=== PATIENT | female | born 1980 | race Caucasian/White ===

== ENCOUNTER 2017-09-21 16:09 | Inpatient (IN) | payer OTHER ==
[2017-09-21 16:56] VITALS: BMI 25.2
--- NOTE | 2017-09-21 20:23 | HP ---
COWS - Scale Resting Pulse: 1= MT 81-100 Sweatin=Flushed/Facial Moisture Restless Observation: 1= Difficult to Sit Still Pupil Size: 0= Normal to Room Light Bone or Joint Aches: 4=Acute Joint/Muscle Pain Runny Nose/ Eye Tearin= None GI Upset > 30mins: 3= Vomiting/Diarrhea (vomiting x 2) Tremor Observation: 4= Gross Tremor/Twitching Yawning Observation: 0= None Anxiety or Irritability: 4=Extreme Anxiety Goose Flesh Skin: 0=Smooth Skin COWS Score: 19 CIWA Score - CIWA Score Nausea/Vomitin (vomiting x 2) Muscle Tremors: 4-Moderate,w/Arms Extend Anxiety: 4-Mod. Anxious/Guarded Agitation: 1-Slight > Activity Paroxysmal Sweats: 2 Orientation: 0-Oriented Tacttile Disturbances: 0-None Auditory Disturbances: 0-None Visual Disturbances: 0-None Headache: 4-Moderately Severe CIWA-Ar Total Score: 18 Admission ROS BHS - HPI Chief Complaint: Alcohol withdrawal symptoms Allergies/Adverse Reactions: Allergies Allergy/AdvReac Type Severity Reaction Status Date / Time No Known Allergies Allergy Verified 09/21/17 18:33 History of Present Illness: 37 years old female with a long history of alcohol and cocaine dependence is seeking admission to detox. Patient has been in previous detox and reports 3 months of sobriety. Patient has past medical history of anemia and depression. Denies suicidal ideation at this time. She is a current smoker and smoking cessation initiated.. Exam Limitations: No Limitations - Ebola screening Have you traveled outside of the country in the last 21 days: No Have you had contact with anyone from an Ebola affected area: No Have you been sick,other than usual withdrawal symptoms: No Do you have a fever: No - Review of Systems Constitutional: Chills, Loss of Appetite, Night Sweats, Changes in sleep, Weakness EENT: reports: No Symptoms Reported Respiratory: reports: Productive cough (greenish phlegm) Cardiac: reports: No Symptoms Reported GI: reports: Poor Appetite, Poor Fluid Intake, Vomiting, Abdominal cramping : reports: No Symptoms Reported Musculoskeletal: reports: Back Pain, Joint Pain, Muscle Pain, Muscle Weakness Integumentary: reports: Flushing, Other (right ankle tatoo) Neuro: reports: Headache, Tingling, Tremors Endocrine: reports: No Symptoms Reported Hematology: reports: No Symptoms Reported Psychiatric: reports: Orientated x3, Agitated, Anxious Other Systems: Reviewed and Negative Patient History - Patient Medical History Hx Anemia: Yes Hx Asthma: No Hx Chronic Obstructive Pulmonary Disease (COPD): No Hx Cancer: No Hx Cardiac Disorders: No Hx Congestive Heart Failure: No Hx Hypertension: No Hx Hypercholesterolemia: No Hx Pacemaker: No HX Cerebrovascular Accident: No Hx Seizures: No Hx Dementia: No Hx Diabetes: No Hx Gastrointestinal Disorders: No Hx Liver Disease: No Hx Genitourinary Disorders: No Hx Sexually Transmitted Disorders: No Hx Renal Disease (ESRD): No Hx Thyroid Disease: No Hx Human Immunodeficiency Virus (HIV): No Hx Hepatitis C: No Hx Depression: Yes Hx Suicide Attempt: No (Denies suicidal ideation at this time) Hx Bipolar Disorder: No Hx Schizophrenia: No - Patient Surgical History Past Surgical History: No Hx Neurologic Surgery: No Hx Cataract Extraction: No Hx Cardiac Surgery: No Hx Lung Surgery: No Hx Breast Surgery: No Hx Breast Biopsy: No Hx Abdominal Surgery: No Hx Appendectomy: No Hx Cholecystectomy: No Hx Genitourinary Surgery: No Hx Section: No Hx Orthopedic Surgery: No Hx Hysterectomy: No Anesthesia Reaction: No - PPD History Previous Implant?: Yes Documented Results: Negative w/proof Date: 03/27/14 PPD to be Administered?: Yes - Reproductive History Patient is a Female of Child Bearing Age (11 -55 yrs old): Yes Last Menstrual Period: 09/05/17 Patient : No - Smoking Cessation Smoking history: Current every day smoker Have you smoked in the past 12 months: Yes Aproximately how many cigarettes per day: 20 Cigars Per Day: 0 Hx Chewing Tobacco Use: No Initiated information on smoking cessation: Yes 'Breaking Loose' booklet given: 09/21/17 - Substance & Tx. History Hx Alcohol Use: Yes (BEER, LIQUOR (VODKA AND RUM)) Hx Substance Use: Yes Substance Use Type: Cocaine Hx Substance Use Treatment: Yes - Substances Abused Alcohol Route: Oral Frequency: Daily Amount used: LIQUOR- 1 LITRE, BEER- 4, 24oz Age of first use: 17 Date of Last Use: 09/21/17 PCP Route: Smoking Frequency: Daily Amount used: 3 bags Age of first use: 36 Date of Last Use: 09/20/17 Cocaine Route: Inhalation Frequency: 1-2 times per week Amount used: 2 bags Age of first use: 35 Date of Last Use: 09/20/17 Family Disease History - Family Disease History Family Disease History: CA: Grandparent (CERVICAL CA, GRANDMOTHER-), Other: Father (ETOH DEPENDENT) Admission Physical Exam [facility] - Vital Signs Vital Signs: Vital Signs - 24 hr 09/21/17 16:54 Temperature 98.2 F Pulse Rate 98 H Respiratory 18 Rate Blood Pressure 117/80 - Physical General Appearance: Yes: Moderate Distress, Tremorous, Irritable, Sweating, Anxious HEENTM: Yes: EOMI, Normal Voice, AG Respiratory: Yes: Lungs Clear, Normal Breath Sounds, No Respiratory Distress Neck: Yes: Supple, Trachea in good position Breast: Yes: Breast Exam Deferred Cardiology: Yes: Regular Rhythm, Regular Rate, S1, S2 Abdominal: Yes: Normal Bowel Sounds, Soft Genitourinary: Yes: Within Normal Limits Back: Yes: Within Normal Limits Musculoskeletal: Yes: Muscle Pain, Muscle weakness Extremities: Yes: Tremors Neurological: Yes: Within Normal Limits, Alert, Normal Mood/Affect Integumentary: Yes: Warm, Other (RIGHT ANKLE TATOO) Lymphatic: Yes: Within Normal Limits - Diagnostic (1) Alcohol dependence with uncomplicated withdrawal Current Visit: Yes Status: Chronic (2) Cocaine dependence, uncomplicated Current Visit: Yes Status: Chronic (3) PCP (phencyclidine) abuse Current Visit: Yes Status: Chronic (4) Depression Current Visit: Yes Status: Chronic (5) Nicotine dependence Current Visit: Yes Status: Chronic Qualifiers: Nicotine product type: cigarettes Cleared for Admission [facility] - Detox or Rehab [facility] Level of Care: Medically Managed Detox Regimen/Protocol: Librium [facility] Breath Alcohol Content Breath Alcohol Content: 0 Urine Pregancy Test - Result Urine Test Results: Negative- NO Line Present Urine Drug Screen - Results Drug Screen Negative: No Urine Drug Screen Results: CICI-Cocaine, PCP-Phencyclidine
[2017-09-21] MEDS ORDERED: NICOTINE POLACRILEX 2 MG GUM BC PRN (20:39)
[2017-09-21] MEDS ORDERED: MAGNESIUM CITRATE 300 ML BOTTLE PO PRN (20:39)
[2017-09-21] MEDS ORDERED: ACETAMINOPHEN 325 MG TABLET (FP) PO PRN (20:39)
[2017-09-21] MEDS ORDERED: chlordiazePOXIDE HCL 25 MG CAPSULE PO PRN (20:39)
[2017-09-21] MEDS ORDERED: IBUPROFEN 400 MG TABLET (FP) PO PRN (20:39)
[2017-09-21] MEDS ORDERED: guaiFENesin/D-METHORPHAN HB 10 ML UNIT-DOSE CUPS PO PRN (20:39)
[2017-09-21] MEDS ORDERED: MAGNESIUM HYDROX 2400MG/30ML ORAL SUSPENSION 30 ML CUP PO PRN (20:39)
[2017-09-21] MEDS ORDERED: P-EPHED 60MG/TRIPROLIDI 2.5MG TABLET PO PRN (20:39)
[2017-09-21] MEDS ORDERED: MAG HYDROX/AL HYDROX/SIMETH 30 ML UNIT-DOSE CUP PO PRN (20:39)
[2017-09-21] MEDS ORDERED: MENTHOL/PHENOL 1 EACH UD MM PRN (20:39)
[2017-09-21] MEDS ORDERED: LOPERAMIDE HCL 2 MG CAPSULE PO PRN (20:39)
--- NOTE | 2017-09-21 21:34 | PN ---
BHS Progress Note Note: received nurse call that the patient needs ppd
[2017-09-21] MEDS: chlordiazePOXIDE HCL 25 MG CAPSULE PO SCH (22:18)
[2017-09-21] MEDS: THIAMINE HCL 100 MG TABLET (FP) PO SCH (22:18)
[2017-09-22] MEDS: chlordiazePOXIDE HCL 25 MG CAPSULE PO SCH ×4 (05:34→22:17)
[2017-09-22 09:40] LABS: HEMATOCRIT 41.7 % (32.4-45.2); HEMOGLOBIN 13.7 GM/dL (10.7-15.3); MCH 31.9 pg (25.7-33.7); MCHC 32.8 g/dl (32.0-36.0); MEAN PLT VOLUME 8.8 fl (7.5-11.1); PLATELET COUNT 199 K/MM3 (134-434); RBC 4.29 M/mm3 (3.60-5.2); RDW 13.7 % (11.6-15.6); WHITE BLOOD COUNT 5.8 K/mm3 (4.0-10.0)
--- NOTE | 2017-09-22 09:46 | EKG ---
Test Reason : Blood Pressure : / mmHG Vent. Rate : 064 BPM Atrial Rate : 064 BPM P-R Int : 142 ms QRS Dur : 092 ms QT Int : 394 ms P-R-T Axes : 042 073 066 degrees QTc Int : 406 ms NORMAL SINUS RHYTHM NORMAL ECG NO PREVIOUS ECGS AVAILABLE Confirmed by MD Jacki, Dionicio ([id number]) on 09/22/2017 9:46:15 AM Referred By: Nixon BARRAGAN Confirmed By:Dionicio Echeverria MD
[2017-09-22 09:52] LABS: URINE APPEARANCE CLEAR; URINE BILIRUBIN NEGATIVE (NEGATIVE); URINE BLOOD NEGATIVE (NEGATIVE); URINE COLOR YELLOW; URINE GLUCOSE (UA) NEGATIVE (NEGATIVE); URINE KETONE TRACE (NEGATIVE); URINE LEUK ESTERASE NEGATIVE (NEGATIVE); URINE NITRITE NEGATIVE (NEGATIVE); URINE PROTEIN NEGATIVE (NEGATIVE)
[2017-09-22 09:54] LABS: CHLORIDE 106 mmol/L (98-107); POTASSIUM 3.6 mmol/L (3.5-5.1); SODIUM 139 mmol/L (136-145)
[2017-09-22 10:04] LABS: ALBUMIN 3.3 g/dl (3.4-5.0); ALK PHOS 88 U/L (45-117); ANION GAP 7 (8-16); BILIRUBIN,TOTAL 0.8 mg/dL (0.2-1.0); BLOOD UREA NITROGEN 12 mg/dL (7-18); CALCIUM 8.5 mg/dL (8.5-10.1); CO2 26 mmol/L (21-32); CREATININE 0.7 mg/dL (0.55-1.02); GLUCOSE,RANDOM 84 mg/dL (74-106); SGOT/AST 20 U/L (15-37); SGPT/ALT 21 U/L (12-78)
--- NOTE | 2017-09-22 10:10 | CONSULT ---
[facility] Psychiatric Consult - Data Date of interview: 09/22/17 Admission source: [facility] Identifying data: This is 37 years old female with no psychiatric hospitalization history intoxicated with: Cocaine, Alcohol and PCP, Nixotine Substance Abuse History: - Smoking Cessation. Smoking history: Current every day smoker. Have you smoked in the past 12 months: Yes. Aproximately how many cigarettes per day: 20. Cigars Per Day: 0. Hx Chewing Tobacco Use: No. Initiated information on smoking cessation: Yes. 'Breaking Loose' booklet given : 09/21/17. - Substance & Tx. History. Hx Alcohol Use: Yes (BEER, LIQUOR ( VODKA AND RUM)). Hx Substance Use: Yes. Substance Use Type: Cocaine. Hx Substance Use Treatment: Yes. - Substances Abused. Alcohol. Route: Oral. Frequency: Daily. Amount used: LIQUOR- 1 LITRE, BEER- 4, 24oz. Age of first use: 17. Date of Last Use: 09/21/17. PCP. Route: Smoking. Frequency: Daily. Amount used: 3 bags. Age of first use: 36. Date of Last Use: . Cocaine. Route: Inhalation. Frequency: 1-2 times per week. Amount used: 2 bags. Age of first use: 35. Date of Last Use: 09/20/17 Medical History: Denies Psychiatric History: Reports depression and anxiety Physical/Sexual Abuse/Trauma History: Denies Additional Comment: Observation. Detox Unit Care Protocol Mental Status Exam - Mental Status Exam Alert and Oriented to: Person Cognitive Function: Fair Patient Appearance: Unkempt Mood: Anxious Affect: Mood Congruent Patient Behavior: Cooperative Speech Pattern: Appropriate Voice Loudness: Mildly Loud Thought Process: Goal Oriented Thought Disorder: Being Controlled Hallucinations: Denies Suicidal Ideation: Denies Homicidal Ideation: Denies Insight/Judgement: Fair Sleep: Difficulty falling asleep Appetite: Fair Muscle strength/Tone: Mild Hypotonicity Gait/Station: Shuffling Additional Comments: Observation. Detox Unit Care Protocol Psychiatric Findings - Problem List ([place] 1, 2,3) (1) Alcohol dependence with uncomplicated withdrawal Current Visit: Yes Status: Chronic (2) Cocaine dependence, uncomplicated Current Visit: Yes Status: Chronic (3) Depression Current Visit: Yes Status: Chronic (4) Nicotine dependence Current Visit: Yes Status: Chronic Qualifiers: Nicotine product type: cigarettes (5) PCP (phencyclidine) abuse Current Visit: Yes Status: Chronic (6) Alcohol dependence, episodic drinking behavior Current Visit: No Status: Acute (7) Alcohol intoxication Current Visit: No Status: Acute (8) Alcohol-induced mood disorder Current Visit: No Status: Acute (9) Cocaine abuse Current Visit: No Status: Acute (10) Marijuana abuse Current Visit: No Status: Acute (11) Alcohol dependence Current Visit: No Status: Chronic - Initial Treatment Plan Initial Treatment Plan: Observation. Detox Unit Care Protocol
[2017-09-22] MEDS: PRENATAL VITAMINS W/ FOLIC ACID TABLET (FP) PO SCH (10:52)
[2017-09-22] MEDS: FLUoxetine HCL 20 MG CAPSULE (FP) PO SCH (10:52)
[2017-09-22] MEDS: risperiDONE 1 MG TABLET (FP) PO SCH ×2 (10:52→22:17)
[2017-09-22] MEDS: NICOTINE 14 MG/24 HOURS TOPICAL PATCH TD SCH (10:53)
--- NOTE | 2017-09-22 11:32 | PN ---
S CIWA - CIWA Score Nausea/Vomitin-No Nausea/No Vomiting Muscle Tremors: 4-Moderate,w/Arms Extend Anxiety: 3 Agitation: 3 Paroxysmal Sweats: 3 Orientation: 0-Oriented Tacttile Disturbances: 0-None Auditory Disturbances: 0-None Visual Disturbances: 0-None Headache: 1-Very Mild CIWA-Ar Total Score: 14 S Progress Note (SOAP) Subjective: agitation sweats shakes interrupted sleep body aches irritable Objective: 09/22/17 11:31 Vital Signs Temperature 97.7 F 09/22/17 10:47 Pulse Rate 83 09/22/17 10:47 Respiratory Rate 16 09/22/17 10:47 Blood Pressure 100/57 09/22/17 10:47 O2 Sat by Pulse Oximetry (%) Laboratory Tests 09/22/17 09/22/17 09/22/17 07:30 07:30 07:30 WBC 5.8 RBC 4.29 Hgb 13.7 Hct 41.7 MCV 97.0 H MCH 31.9 MCHC 32.8 RDW 13.7 Plt Count 199 MPV 8.8 Sodium 139 Potassium 3.6 Chloride 106 Carbon Dioxide 26 Anion Gap 7 L BUN 12 D Creatinine 0.7 Creat Clearance w eGFR > 60 Random Glucose 84 Calcium 8.5 Total Bilirubin 0.8 D AST 20 ALT 21 D Alkaline Phosphatase 88 Total Protein 6.0 L Albumin 3.3 L Urine Color Urine Appearance Urine pH Ur Specific Dalton Urine Protein Urine Glucose (UA) Urine Ketones Urine Blood Urine Nitrite Urine Bilirubin Urine Urobilinogen RPR Titer Nonreactive 09/22/17 07:30 WBC RBC Hgb Hct MCV MCH MCHC RDW Plt Count MPV Sodium Potassium Chloride Carbon Dioxide Anion Gap BUN Creatinine Creat Clearance w eGFR Random Glucose Calcium Total Bilirubin AST ALT Alkaline Phosphatase Total Protein Albumin Urine Color Yellow Urine Appearance Clear Urine pH 5.0 Ur Specific Dalton 1.023 Urine Protein Negative Urine Glucose (UA) Negative Urine Ketones Trace H Urine Blood Negative Urine Nitrite Negative Urine Bilirubin Negative Urine Urobilinogen 2.0 H RPR Titer aaox3 ambulating no acute distress Assessment: 09/22/17 11:32 withdrawal sx Plan: continue detox increase fluids
[2017-09-22] MEDS: QUEtiapine FUMARATE 100 MG TABLET (FP) PO SCH (22:17)
[2017-09-22] MEDS: traZODone HCL 100 MG TABLET (FP) PO SCH (22:17)
[2017-09-22] MEDS: THIAMINE HCL 100 MG TABLET (FP) PO SCH (22:18)
[2017-09-23] MEDS: chlordiazePOXIDE HCL 25 MG CAPSULE PO SCH ×3 (06:18→17:25)
[2017-09-23] MEDS: FLUoxetine HCL 20 MG CAPSULE (FP) PO SCH (10:11)
[2017-09-23] MEDS: risperiDONE 1 MG TABLET (FP) PO SCH ×2 (10:11→22:32)
[2017-09-23] MEDS: PRENATAL VITAMINS W/ FOLIC ACID TABLET (FP) PO SCH (10:11)
[2017-09-23] MEDS: NICOTINE 14 MG/24 HOURS TOPICAL PATCH TD SCH (10:15)
--- NOTE | 2017-09-23 10:51 | PN ---
BHS CIWA - CIWA Score Nausea/Vomitin-No Nausea/No Vomiting Muscle Tremors: 3 Anxiety: 2 Agitation: 2 Paroxysmal Sweats: 2 Orientation: 0-Oriented Tacttile Disturbances: 0-None Auditory Disturbances: 0-None Visual Disturbances: 0-None Headache: 0-None Present CIWA-Ar Total Score: 9 BHS Progress Note (SOAP) Subjective: little sweats feeling better Objective: 09/23/17 10:52 Vital Signs Temperature 96.8 F L 09/23/17 10:00 Pulse Rate 78 09/23/17 10:00 Respiratory Rate 18 09/23/17 10:00 Blood Pressure 118/73 09/23/17 10:00 O2 Sat by Pulse Oximetry (%) aaox3 ambulating no acute distress Assessment: 09/23/17 10:52 mild withdrawal sx Plan: continue detox pt d/c in am pt will be p/u to st visit rehab
[2017-09-23] MEDS: QUEtiapine FUMARATE 100 MG TABLET (FP) PO SCH (22:31)
[2017-09-23] MEDS: chlordiazePOXIDE 5 MG CAPSULE PO SCH (22:31)
[2017-09-23] MEDS: THIAMINE HCL 100 MG TABLET (FP) PO SCH (22:31)
[2017-09-23] MEDS: traZODone HCL 100 MG TABLET (FP) PO SCH (22:32)
[2017-09-24] MEDS: chlordiazePOXIDE 5 MG CAPSULE PO SCH ×2 (05:47→10:17)
--- NOTE | 2017-09-24 08:57 | DS ---
[facility] Detox Discharge Summary Admission Date: 09/21/17 Discharge Date: 09/24/17 - History Present History: Alcohol Dependence, Cannabis Dependence, Cocaine Dependence, Pcp Dependence - Physical Exam Results Vital Signs: Vital Signs Temperature 97.7 F 09/24/17 06:00 Pulse Rate 66 09/24/17 06:00 Respiratory Rate 18 09/24/17 06:00 Blood Pressure 115/66 09/24/17 06:00 O2 Sat by Pulse Oximetry (%) - Treatment Hospital Course: Detox Protocol Followed, Detoxed Safely, Responded well, Discharged Condition Good, Rehab Referral Accepted - Medication Discharge Medications: Ambulatory Orders Fluoxetine HCl [Prozac -] 20 mg PO DAILY #30 capsule 09/22/17 Quetiapine Fumarate [Seroquel -] 200 mg PO BID #60 tab 09/22/17 Quetiapine Fumarate [Seroquel] 100 mg PO HS #30 tablet 09/22/17 Risperidone [Risperdal -] 1 mg PO BID #60 tablet 09/22/17 Trazodone HCl [Desyrel -] 100 mg PO HS #30 tablet 09/22/17 - Diagnosis (1) Alcohol dependence with uncomplicated withdrawal Current Visit: Yes Status: Chronic (2) Cocaine dependence, uncomplicated Current Visit: Yes Status: Chronic (3) Depression Current Visit: Yes Status: Chronic (4) Nicotine dependence Current Visit: Yes Status: Chronic Qualifiers: Nicotine product type: cigarettes Substance use status: uncomplicated Qualified Code(s): F17.210 - Nicotine dependence, cigarettes, uncomplicated (5) PCP (phencyclidine) abuse Current Visit: Yes Status: Chronic (6) Adjustment disorder with depressed mood Current Visit: No Status: Acute (7) Alcohol dependence, episodic drinking behavior Current Visit: No Status: Acute (8) Alcohol intoxication Current Visit: No Status: Acute (9) Alcohol-induced mood disorder Current Visit: No Status: Acute (10) Marijuana abuse Current Visit: No Status: Acute - AMA Did Patient Leave Against Medical Advice: No ([facility] )
[2017-09-24] MEDS: NICOTINE 14 MG/24 HOURS TOPICAL PATCH TD SCH (09:13)
[2017-09-24] MEDS: risperiDONE 1 MG TABLET (FP) PO SCH (09:13)
[2017-09-24] MEDS: FLUoxetine HCL 20 MG CAPSULE (FP) PO SCH (09:13)
[2017-09-24] MEDS: PRENATAL VITAMINS W/ FOLIC ACID TABLET (FP) PO SCH (09:13)
[2017-09-24 09:43] VITALS: BP 117/78; PULSE 83; TEMP 96
[2017-09-24] MEDS ORDERED: chlordiazePOXIDE HCL 10 MG CAPSULE PO SCH (23:00)
== END 2017-09-24 10:00 | disposition home or self-care (01) | DRG 774 ==
LOC: YASAS 16:09 → Y6N 19:48
PROVIDERS: ADMIT Internal Medicine; ATTEND Internal Medicine
PROC: HZ2ZZZZ Detoxification Services for Substance Abuse Treatment (ICD-10-PCS; principal; 2017-09-21)
DX: F10.230 Alcohol dependence with withdrawal, uncomplicated (principal); F14.20 Cocaine dependence, uncomplicated; F17.210 Nicotine dependence, cigarettes, uncomplicated; F16.10 Hallucinogen abuse, uncomplicated; F10.24 Alcohol dependence with alcohol-induced mood disorder; F32.9 Major depressive disorder, single episode, unspecified; F43.21 Adjustment disorder with depressed mood
CPT/HCPCS: 36415; 80053; 81003; 85027; 86593; 93005; 93010; J2794

== ENCOUNTER 2019-04-12 08:42 | Inpatient (IN) | payer OTHER | END 2019-04-17 12:14 | disposition other institution (70) | LOC: YASAS 08:42 → Y6N 10:52 ==

== ENCOUNTER 2019-04-17 12:24 | Inpatient (IN) | payer OTHER ==
[2019-04-17] MEDS ORDERED: P-EPHED 60MG/TRIPROLIDI 2.5MG TABLET PO PRN (14:47)
[2019-04-17] MEDS ORDERED: MENTHOL/PHENOL 1 EACH UD MM PRN (14:47)
[2019-04-17] MEDS ORDERED: LOPERAMIDE HCL 2 MG CAPSULE PO PRN (14:47)
[2019-04-17] MEDS ORDERED: MAGNESIUM CITRATE 300 ML BOTTLE PO PRN (14:47)
[2019-04-17] MEDS ORDERED: NICOTINE POLACRILEX 4 MG GUM BUC PRN (14:47)
[2019-04-17] MEDS ORDERED: guaiFENesin 200 MG/10 ML 10 ML UNIT-DOSE CUPS PO PRN (14:47)
[2019-04-17] MEDS ORDERED: IBUPROFEN 400 MG TABLET (FP) PO PRN (14:47)
[2019-04-17] MEDS ORDERED: MAG HYDROX/AL HYDROX/SIMETH 30 ML UNIT-DOSE CUP PO PRN (14:47)
[2019-04-17] MEDS ORDERED: MAGNESIUM HYDROX 2400MG/30ML ORAL SUSPENSION 30 ML CUP PO PRN (14:47)
--- NOTE | 2019-04-17 14:47 | HP ---
[facility] Rehab Assess/Revision - Admission History Admitted to Rehab from: [address] - Vital signs Vital Signs: Vital Signs Period Temp Pulse Resp BP Sys/Bishop Pulse Ox Last 24 Hr 97 F 67 16 105/68 - Findings Detox History & Physical reviewed: Yes Concur with findings: Yes Inpatient Rehab Admission - Rehab Decision to Admit Inpatient rehab admission?: Yes - Initial Determination Are CD services needed?: Yes Free of communicable disease: Yes Not in need of hospitalization: Yes - Rehab Admission Criteria Previous failed treatment: Yes Poor recovery environment: Yes Comorbidities: Yes Lacks judgement: Yes Patient is meeting Inpatient Rehab admission criteria:: Yes
[2019-04-17] MEDS: MELATONIN 5 MG TABLETS PO PRN (21:23)
[2019-04-17] MEDS: hydrOXYzine PAMOATE 50 MG CAPSULE (FP) PO PRN (21:23)
[2019-04-17] MEDS: THIAMINE HCL 100 MG TABLET (FP) PO SCH (21:23)
[2019-04-18] MEDS: SERTRALINE HCL 50 MG TABLET (FP) PO SCH (10:26)
[2019-04-18] MEDS: NICOTINE 21 MG/24 HOURS TOPICAL PATCH TD SCH (10:26)
[2019-04-18] MEDS: PRENATAL VITAMINS W/ FOLIC ACID TABLET (FP) PO SCH (10:26)
[2019-04-18] MEDS: MELATONIN 5 MG TABLETS PO PRN (21:21)
[2019-04-18] MEDS: THIAMINE HCL 100 MG TABLET (FP) PO SCH (21:21)
[2019-04-18] MEDS: hydrOXYzine PAMOATE 50 MG CAPSULE (FP) PO PRN (21:21)
[2019-04-19] MEDS: NICOTINE 21 MG/24 HOURS TOPICAL PATCH TD SCH (09:46)
[2019-04-19] MEDS: SERTRALINE HCL 50 MG TABLET (FP) PO SCH (09:47)
[2019-04-19] MEDS: PRENATAL VITAMINS W/ FOLIC ACID TABLET (FP) PO SCH (09:47)
--- NOTE | 2019-04-19 16:00 | CONSULT ---
[facility] Psychiatric Consult - Data Date of interview: 04/19/19 Admission source: [facility] Identifying data: Patient is a 38 year old single female, mother of three, unemployed, domiciled, and is supported by food [employer]. This is patient's first admission to rehab at [facility]. Patient admitted to for alcohol dependence. Substance Abuse History: Smoking Cessation. Smoking history: Current every day smoker. Have you smoked in the past 12 months: Yes. Aproximately how many cigarettes per day: 10. Cigars Per Day: 0. Hx Chewing Tobacco Use: No. Initiated information on smoking cessation: Yes. 'Breaking Loose' booklet given : 04/12/19. - Substance & Tx. History. Hx Alcohol Use: Yes. Substance Use Type: Alcohol. - Substances abused. Alcohol. Substance route: Oral. Frequency: Daily. Amount used: 2 pints vodka. Age of first use: 16. Date of last use: 04/12/19. PCP. Substance route: Smoking. Frequency: 3-6 times per week. Amount used: 2 Dime ($10) bags. Age of first use: 36. Date of last use: 04/12/19 Medical History: Significant for history of anemia. Psychiatric History: Patient denies h/o psychiatric hospitalization and suicide attempt. Reports first seeing a psychiatrist [facility] at [facility]. States she was prescribed seroquel 200mg TID + Risperdal + trazodone (unsure of doses). She denies h/o psychosis and manic episodes. After discharge from [facility] she seeked outpatient psychiatric care at [facility] and was started on zoloft 50mg and titrated to 150mg daily. Patient reports history of depression secondary to unemployment, lack of custody of her children, and alcohol dependence. Patient was given a prescription of zoloft 150mg on 02/19/19. She reports medication noncompliance ( 1X month) due to her alcohol dependence. At present patient reports feeling sad but is motivated to continue rehab. Physical/Sexual Abuse/Trauma History: denies. Mental Status Exam - Mental Status Exam Alert and Oriented to: Time, Place, Person Cognitive Function: Good Patient Appearance: Well Groomed Mood: Sad Affect: Appropriate Patient Behavior: Cooperative Speech Pattern: Appropriate Voice Loudness: Normal Thought Process: Goal Oriented Thought Disorder: Not Present Hallucinations: Denies Suicidal Ideation: Denies Homicidal Ideation: Denies Insight/Judgement: Poor Sleep: Fair Appetite: Fair Muscle strength/Tone: Normal Gait/Station: Normal Psychiatric Findings - Problem List ([place] 1, 2,3) (1) Adjustment disorder with depressed mood Current Visit: Yes Status: Acute (2) Cocaine dependence, uncomplicated Current Visit: Yes Status: Chronic (3) PCP (phencyclidine) abuse Current Visit: Yes Status: Chronic (4) Nicotine dependence Current Visit: Yes Status: Chronic Qualifiers: Nicotine product type: cigarettes Substance use status: uncomplicated Qualified Code(s): F17.210 - Nicotine dependence, cigarettes, uncomplicated - Initial Treatment Plan Initial Treatment Plan: Psychoeducation provided. rehab in progress. Willl d/c zoloft 150mg ordered by WELFARE ADVISER. Will d/c Melatonin 5mg and order 10mg HS. Will order zoloft 100mg. Benefits and side effects discussed. Verbal consent given.
[2019-04-19] MEDS: THIAMINE HCL 100 MG TABLET (FP) PO SCH (21:20)
[2019-04-19] MEDS: hydrOXYzine PAMOATE 50 MG CAPSULE (FP) PO PRN (21:20)
[2019-04-19] MEDS: MELATONIN 5 MG TABLETS PO PRN (21:20)
[2019-04-20] MEDS: NICOTINE 21 MG/24 HOURS TOPICAL PATCH TD SCH (09:36)
[2019-04-20] MEDS: SERTRALINE HCL 50 MG TABLET (FP) PO SCH (09:36)
[2019-04-20] MEDS: PRENATAL VITAMINS W/ FOLIC ACID TABLET (FP) PO SCH (09:36)
[2019-04-20] MEDS: MELATONIN 5 MG TABLETS PO PRN (21:24)
[2019-04-20] MEDS: THIAMINE HCL 100 MG TABLET (FP) PO SCH (21:24)
[2019-04-21] MEDS: NICOTINE 21 MG/24 HOURS TOPICAL PATCH TD SCH (09:46)
[2019-04-21] MEDS: SERTRALINE HCL 50 MG TABLET (FP) PO SCH (09:46)
[2019-04-21] MEDS: PRENATAL VITAMINS W/ FOLIC ACID TABLET (FP) PO SCH (09:46)
[2019-04-21] MEDS ORDERED: PT OWN MED DRAWER 7, Y5N ONE (12:21)
[2019-04-21] MEDS: THIAMINE HCL 100 MG TABLET (FP) PO SCH (21:03)
[2019-04-21] MEDS: MELATONIN 5 MG TABLETS PO PRN (21:04)
[2019-04-22] MEDS: SERTRALINE HCL 50 MG TABLET (FP) PO SCH (10:15)
[2019-04-22] MEDS: PRENATAL VITAMINS W/ FOLIC ACID TABLET (FP) PO SCH (10:15)
[2019-04-22] MEDS: NICOTINE 21 MG/24 HOURS TOPICAL PATCH TD SCH (10:15)
[2019-04-22] MEDS: THIAMINE HCL 100 MG TABLET (FP) PO SCH (21:14)
[2019-04-22] MEDS: MELATONIN 5 MG TABLETS PO PRN (21:15)
[2019-04-23] MEDS: PRENATAL VITAMINS W/ FOLIC ACID TABLET (FP) PO SCH (09:40)
[2019-04-23] MEDS: NICOTINE 21 MG/24 HOURS TOPICAL PATCH TD SCH (09:40)
[2019-04-23] MEDS: SERTRALINE HCL 50 MG TABLET (FP) PO SCH (09:40)
[2019-04-23] MEDS: THIAMINE HCL 100 MG TABLET (FP) PO SCH (22:01)
[2019-04-23] MEDS: MELATONIN 5 MG TABLETS PO PRN (22:02)
[2019-04-24] MEDS: SERTRALINE HCL 50 MG TABLET (FP) PO SCH (09:36)
[2019-04-24] MEDS: PRENATAL VITAMINS W/ FOLIC ACID TABLET (FP) PO SCH (09:36)
[2019-04-24] MEDS: NICOTINE 21 MG/24 HOURS TOPICAL PATCH TD SCH (09:37)
[2019-04-24] MEDS: MELATONIN 5 MG TABLETS PO PRN (21:48)
[2019-04-24] MEDS: THIAMINE HCL 100 MG TABLET (FP) PO SCH (21:48)
[2019-04-25] MEDS: PRENATAL VITAMINS W/ FOLIC ACID TABLET (FP) PO SCH (09:27)
[2019-04-25] MEDS: NICOTINE 21 MG/24 HOURS TOPICAL PATCH TD SCH (09:27)
[2019-04-25] MEDS: SERTRALINE HCL 50 MG TABLET (FP) PO SCH (09:27)
[2019-04-25] MEDS: ACETAMINOPHEN 325 MG TABLET (FP) PO PRN (17:18)
[2019-04-25] MEDS: MELATONIN 5 MG TABLETS PO PRN (21:57)
[2019-04-25] MEDS: THIAMINE HCL 100 MG TABLET (FP) PO SCH (21:58)
[2019-04-26] MEDS: SERTRALINE HCL 50 MG TABLET (FP) PO SCH (09:53)
[2019-04-26] MEDS: PRENATAL VITAMINS W/ FOLIC ACID TABLET (FP) PO SCH (09:53)
[2019-04-26] MEDS: NICOTINE 21 MG/24 HOURS TOPICAL PATCH TD SCH (09:53)
[2019-04-26] MEDS: THIAMINE HCL 100 MG TABLET (FP) PO SCH (21:51)
[2019-04-26] MEDS: MELATONIN 5 MG TABLETS PO PRN (21:51)
[2019-04-27] MEDS: NICOTINE 21 MG/24 HOURS TOPICAL PATCH TD SCH (10:40)
[2019-04-27] MEDS: PRENATAL VITAMINS W/ FOLIC ACID TABLET (FP) PO SCH (10:40)
[2019-04-27] MEDS: SERTRALINE HCL 50 MG TABLET (FP) PO SCH (10:40)
[2019-04-27] MEDS: THIAMINE HCL 100 MG TABLET (FP) PO SCH (21:31)
[2019-04-27] MEDS: MELATONIN 5 MG TABLETS PO PRN (21:32)
[2019-04-28] MEDS ORDERED: COLLOIDAL OATMEAL 1 BAR EACH TP PRN (08:26)
[2019-04-28] MEDS: PRENATAL VITAMINS W/ FOLIC ACID TABLET (FP) PO SCH (09:56)
[2019-04-28] MEDS: SERTRALINE HCL 50 MG TABLET (FP) PO SCH (09:57)
[2019-04-28] MEDS: NICOTINE 21 MG/24 HOURS TOPICAL PATCH TD SCH (09:57)
--- NOTE | 2019-04-28 15:20 | PN ---
Psychiatric Progress Note Vital Signs: Vital Signs Period Temp Pulse Resp BP Sys/Bishop Pulse Ox Last 24 Hr 97.6 F 85 18-18 106/66 Date of Session: 04/28/19 Chief Complaint:: " Can my zoloft be increased to what it was before i came here." HPI: Patient admitted to 3E for alcohol dependence. ROS: Patient is coherent, alert and oriented X3. Current Medications: Active Medications Generic Name Dose Route Start Last Admin Trade Name Freq PRN Reason Stop Dose Admin Acetaminophen 650 mg 04/17/19 14:47 04/25/19 17:18 Tylenol - PO 650 mg Q4H PRN Administration FEVER Al Hydroxide/Mg Hydroxide 30 ml 04/17/19 14:47 Mylanta Oral Suspension - PO Q6H PRN DYSPEPSIA Colloidal Oatmeal 1 applic 04/28/19 08:26 04/28/19 10:47 Aveeno Soap - TP 1 applic DAILY PRN Administration HYGEINE Eucalyptus/Menthol/Phenol/Sorbitol 1 each 04/17/19 14:47 Cepastat Lozenge - MM Q4H PRN SORE THROAT Guaifenesin 10 ml 04/17/19 14:47 Robitussin - PO Q6H PRN COUGH Hydroxyzine Pamoate 50 mg 04/17/19 14:47 04/19/19 21:20 Vistaril - PO 50 mg Q4H PRN Administration AGITATION Ibuprofen 400 mg 04/17/19 14:47 Motrin - PO Q6H PRN Pain Level 4-6 Loperamide HCl 4 mg 04/17/19 14:47 Imodium - PO Q6H PRN DIARRHEA Magnesium Citrate 300 ml 04/17/19 14:47 Citroma - PO Q48H PRN CONSTIPATION Magnesium Hydroxide 30 ml 04/17/19 14:47 Milk Of Magnesia - PO DAILY PRN CONSTIPATION Melatonin 10 mg 04/20/19 22:00 04/27/19 21:32 Melatonin PO 10 mg HS PRN Administration INSOMNIA Nicotine 21 mg 04/18/19 10:00 04/28/19 09:57 Nicoderm Patch - TD Not Given DAILY AWILDA Nicotine Polacrilex 4 mg 04/17/19 14:47 Nicorette Gum - BUC Q2H PRN NICOTINE REPLACEMENT RX Multivit/Folic Acid/Iron 1 tab 04/18/19 10:00 04/28/19 09:56 Vitamins (Sjr) - PO 1 tab DAILY AWILDA Administration Pseudoephedrine/Triprolidine 1 combo 04/17/19 14:47 Actifed - PO TID PRN NASAL CONGESTION Sertraline HCl 150 mg 04/29/19 10:00 Zoloft - PO DAILY AWILDA Thiamine HCl 100 mg 04/17/19 22:00 04/27/19 21:31 Vitamin B1 - PO 100 mg HS AWILDA Administration Medication(s) Change(s): Yes. Current Side Effect: No Lab tests ordered: No Lab tests reviewed: Yes Provider note:: Patient requesting an increase in zoloft. Patient is currently prescribed zoloft 100mg by residential mortgage underwriter. Ms. Sosa was given a prescription of zoloft 150mg on 02/19/19 but reports medication noncompliance for approximately one month before admission to [facility]. Patient has been tolerating zoloft 100mg well. States her mood and anxiety has slightly improved but states she felt at her best when she was taking zoloft 150mg. Will d/c zoloft 100mg and order Zoloft 150mg daily. Benefits and side effects discussed. Verbal consent given. Total face to face time:: 25 Mental Status Exam - Mental Status Exam Alert and Oriented to: Time, Place, Person Cognitive Function: Good Patient Appearance: Well Groomed Mood: Euthymic Affect: Mood Congruent Patient Behavior: Cooperative Speech Pattern: Appropriate Voice Loudness: Normal Thought Process: Intact, Goal Oriented Thought Disorder: Not Present Hallucinations: Denies Suicidal Ideation: Denies Homicidal Ideation: Denies Insight/Judgement: Poor Sleep: Poorly Appetite: Fair Muscle strength/Tone: Normal Gait/Station: Normal Psychiatric Treatment Plan - Problem List (1) Adjustment disorder with depressed mood Current Visit: Yes (2) Cocaine dependence, uncomplicated Current Visit: Yes (3) PCP (phencyclidine) abuse Current Visit: Yes (4) Nicotine dependence Current Visit: Yes Qualifiers: Nicotine product type: cigarettes Substance use status: uncomplicated Qualified Code(s): F17.210 - Nicotine dependence, cigarettes, uncomplicated
[2019-04-28] MEDS: THIAMINE HCL 100 MG TABLET (FP) PO SCH (21:38)
[2019-04-28] MEDS: MELATONIN 5 MG TABLETS PO PRN (21:38)
[2019-04-29] MEDS: SERTRALINE HCL 50 MG TABLET (FP) PO SCH (09:30)
[2019-04-29] MEDS: NICOTINE 21 MG/24 HOURS TOPICAL PATCH TD SCH (09:30)
[2019-04-29] MEDS: PRENATAL VITAMINS W/ FOLIC ACID TABLET (FP) PO SCH (09:30)
[2019-04-29] MEDS: THIAMINE HCL 100 MG TABLET (FP) PO SCH (21:07)
[2019-04-29] MEDS: MELATONIN 5 MG TABLETS PO PRN (21:07)
[2019-04-30] MEDS: SERTRALINE HCL 50 MG TABLET (FP) PO SCH (09:34)
[2019-04-30] MEDS: PRENATAL VITAMINS W/ FOLIC ACID TABLET (FP) PO SCH (09:34)
[2019-04-30] MEDS: NICOTINE 21 MG/24 HOURS TOPICAL PATCH TD SCH (09:34)
[2019-04-30] MEDS: MELATONIN 5 MG TABLETS PO PRN (21:31)
[2019-04-30] MEDS: THIAMINE HCL 100 MG TABLET (FP) PO SCH (21:31)
[2019-05-01] MEDS: SERTRALINE HCL 50 MG TABLET (FP) PO SCH (09:46)
[2019-05-01] MEDS: PRENATAL VITAMINS W/ FOLIC ACID TABLET (FP) PO SCH (09:46)
[2019-05-01] MEDS: NICOTINE 21 MG/24 HOURS TOPICAL PATCH TD SCH (09:47)
[2019-05-01] MEDS: ACETAMINOPHEN 325 MG TABLET (FP) PO PRN (09:48)
[2019-05-01] MEDS: MELATONIN 5 MG TABLETS PO PRN (21:50)
[2019-05-01] MEDS: THIAMINE HCL 100 MG TABLET (FP) PO SCH (21:50)
[2019-05-02] MEDS: SERTRALINE HCL 50 MG TABLET (FP) PO SCH (09:24)
[2019-05-02] MEDS: PRENATAL VITAMINS W/ FOLIC ACID TABLET (FP) PO SCH (09:24)
[2019-05-02] MEDS: NICOTINE 21 MG/24 HOURS TOPICAL PATCH TD SCH (09:24)
[2019-05-02] MEDS: THIAMINE HCL 100 MG TABLET (FP) PO SCH (22:00)
[2019-05-02] MEDS: MELATONIN 5 MG TABLETS PO PRN (22:00)
[2019-05-03] MEDS: PRENATAL VITAMINS W/ FOLIC ACID TABLET (FP) PO SCH (09:55)
[2019-05-03] MEDS: NICOTINE 21 MG/24 HOURS TOPICAL PATCH TD SCH (09:55)
[2019-05-03] MEDS: SERTRALINE HCL 50 MG TABLET (FP) PO SCH (09:55)
[2019-05-03] MEDS: ACETAMINOPHEN 325 MG TABLET (FP) PO PRN (09:57)
[2019-05-03] MEDS: THIAMINE HCL 100 MG TABLET (FP) PO SCH (21:19)
[2019-05-03] MEDS: MELATONIN 5 MG TABLETS PO PRN (21:19)
[2019-05-04] MEDS: PRENATAL VITAMINS W/ FOLIC ACID TABLET (FP) PO SCH (09:25)
[2019-05-04] MEDS: SERTRALINE HCL 50 MG TABLET (FP) PO SCH (09:25)
[2019-05-04] MEDS: NICOTINE 21 MG/24 HOURS TOPICAL PATCH TD SCH (09:26)
[2019-05-04] MEDS: THIAMINE HCL 100 MG TABLET (FP) PO SCH (21:14)
[2019-05-04] MEDS: MELATONIN 5 MG TABLETS PO PRN (21:14)
[2019-05-05] MEDS ORDERED: PT OWN MED DRAWER 7, Y5N ONE (08:28)
[2019-05-05] MEDS: PRENATAL VITAMINS W/ FOLIC ACID TABLET (FP) PO SCH (09:51)
[2019-05-05] MEDS: NICOTINE 21 MG/24 HOURS TOPICAL PATCH TD SCH (09:51)
[2019-05-05] MEDS: SERTRALINE HCL 50 MG TABLET (FP) PO SCH (09:51)
[2019-05-05] MEDS: THIAMINE HCL 100 MG TABLET (FP) PO SCH (21:52)
[2019-05-05] MEDS: MELATONIN 5 MG TABLETS PO PRN (21:52)
[2019-05-06] MEDS: ACETAMINOPHEN 325 MG TABLET (FP) PO PRN (09:53)
[2019-05-06] MEDS: SERTRALINE HCL 50 MG TABLET (FP) PO SCH (09:53)
[2019-05-06] MEDS: PRENATAL VITAMINS W/ FOLIC ACID TABLET (FP) PO SCH (09:53)
[2019-05-06] MEDS: NICOTINE 21 MG/24 HOURS TOPICAL PATCH TD SCH (09:54)
[2019-05-06] MEDS: THIAMINE HCL 100 MG TABLET (FP) PO SCH (21:35)
[2019-05-06] MEDS: MELATONIN 5 MG TABLETS PO PRN (21:36)
[2019-05-07] MEDS: SERTRALINE HCL 50 MG TABLET (FP) PO SCH (09:26)
[2019-05-07] MEDS: PRENATAL VITAMINS W/ FOLIC ACID TABLET (FP) PO SCH (09:26)
[2019-05-07] MEDS: NICOTINE 21 MG/24 HOURS TOPICAL PATCH TD SCH (09:26)
[2019-05-07] MEDS: MELATONIN 5 MG TABLETS PO PRN (21:38)
[2019-05-07] MEDS: THIAMINE HCL 100 MG TABLET (FP) PO SCH (21:38)
[2019-05-08] MEDS ORDERED: PT OWN MED DRAWER 7, Y5N ONE (08:32)
[2019-05-08] MEDS: PRENATAL VITAMINS W/ FOLIC ACID TABLET (FP) PO SCH (09:37)
[2019-05-08] MEDS: NICOTINE 21 MG/24 HOURS TOPICAL PATCH TD SCH (09:37)
[2019-05-08] MEDS: SERTRALINE HCL 50 MG TABLET (FP) PO SCH (09:38)
[2019-05-08] MEDS: THIAMINE HCL 100 MG TABLET (FP) PO SCH (21:34)
[2019-05-09] MEDS: SERTRALINE HCL 50 MG TABLET (FP) PO SCH (09:52)
[2019-05-09] MEDS: PRENATAL VITAMINS W/ FOLIC ACID TABLET (FP) PO SCH (09:52)
[2019-05-09] MEDS: NICOTINE 21 MG/24 HOURS TOPICAL PATCH TD SCH (09:52)
[2019-05-09] MEDS: THIAMINE HCL 100 MG TABLET (FP) PO SCH (21:34)
[2019-05-10] MEDS: NICOTINE 21 MG/24 HOURS TOPICAL PATCH TD SCH (09:43)
[2019-05-10] MEDS: SERTRALINE HCL 50 MG TABLET (FP) PO SCH (09:43)
[2019-05-10] MEDS: PRENATAL VITAMINS W/ FOLIC ACID TABLET (FP) PO SCH (09:43)
[2019-05-10] MEDS: THIAMINE HCL 100 MG TABLET (FP) PO SCH (21:21)
[2019-05-11] MEDS: PRENATAL VITAMINS W/ FOLIC ACID TABLET (FP) PO SCH (10:11)
[2019-05-11] MEDS: SERTRALINE HCL 50 MG TABLET (FP) PO SCH (10:11)
[2019-05-11] MEDS: ACETAMINOPHEN 325 MG TABLET (FP) PO PRN (10:12)
[2019-05-11] MEDS: NICOTINE 21 MG/24 HOURS TOPICAL PATCH TD SCH (10:12)
[2019-05-11] MEDS: THIAMINE HCL 100 MG TABLET (FP) PO SCH (21:30)
[2019-05-12] MEDS: SERTRALINE HCL 50 MG TABLET (FP) PO SCH (09:35)
[2019-05-12] MEDS: PRENATAL VITAMINS W/ FOLIC ACID TABLET (FP) PO SCH (09:35)
[2019-05-12] MEDS: NICOTINE 21 MG/24 HOURS TOPICAL PATCH TD SCH (10:15)
[2019-05-12] MEDS: THIAMINE HCL 100 MG TABLET (FP) PO SCH (22:10)
[2019-05-13] MEDS: NICOTINE 21 MG/24 HOURS TOPICAL PATCH TD SCH (10:01)
[2019-05-13] MEDS: SERTRALINE HCL 50 MG TABLET (FP) PO SCH (10:01)
[2019-05-13] MEDS: PRENATAL VITAMINS W/ FOLIC ACID TABLET (FP) PO SCH (10:01)
[2019-05-13] MEDS: ACETAMINOPHEN 325 MG TABLET (FP) PO PRN (19:52)
[2019-05-13] MEDS: THIAMINE HCL 100 MG TABLET (FP) PO SCH (21:52)
[2019-05-14] MEDS: PRENATAL VITAMINS W/ FOLIC ACID TABLET (FP) PO SCH (09:55)
[2019-05-14] MEDS: NICOTINE 21 MG/24 HOURS TOPICAL PATCH TD SCH (09:55)
[2019-05-14] MEDS: SERTRALINE HCL 50 MG TABLET (FP) PO SCH (09:55)
--- NOTE | 2019-05-14 13:44 | PN ---
S Progress Note Note: Patient is scheduled for discharge tomorrow. Script for 30 days supply of Zoloft 150 mg/day will be electronically transmitted to [facility] at [address] [place], [place] [id number]
[2019-05-14] MEDS: THIAMINE HCL 100 MG TABLET (FP) PO SCH (22:03)
[2019-05-15 07:16] VITALS: BP 129/84; PULSE 65; TEMP 97.8
--- NOTE | 2019-05-15 08:28 | DS ---
[facility] Rehab Discharge Summary - [facility] Rehab Discharge Summary Admission Date: 04/17/19 Discharge Date: 05/15/19 - History Present History: Alcohol dependence, Cannabis dependence, Cocaine dependence Pertinent Past History: History of Present Illness: 38 y/o/f here for alcohol and PCP use. She has been drinking 2 pints of alcohol daily. She denies any history of seizures. She starts to drink around noon and if she does not drink she starts to feel sick and get tremors. She is using two $10 bags of PCP 3 times a week. Her drug use has been worse over the last 3 months. She smokes Marijuana once a week. She smokes 10 cigarettes a day. PMHx of depression. She has been prescribed Zoloft but is not taking it. Denies surgical history. She is living with family and is currently unemployed. She had an prior to admission. [facility] was contacted and patient's procedure was confirmed. 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 Has no acute or urgent medical problems at this time. Is medically stable for discharge. - Medication Discharge Medications: Ambulatory Orders Sertraline HCl [Zoloft -] 150 mg PO DAILY #90 tablet 05/14/19 - Medication-Assisted Treatment (MAT) Medication-Assisted Treatment (MAT): No - Discharge Instructions Diet, activity, other medical instructions: Diet:as tolerated Activity: as tolerated Other medical instructions: follow up with PCP within 2 weeks, aftercare as arranged with [facility] counselor. - Diagnosis (1) Cocaine dependence, uncomplicated Current Visit: Yes Status: Chronic (2) Nicotine dependence Current Visit: Yes Status: Chronic Qualifiers: Nicotine product type: cigarettes Substance use status: uncomplicated Qualified Code(s): F17.210 - Nicotine dependence, cigarettes, uncomplicated (3) PCP (phencyclidine) abuse Current Visit: Yes Status: Chronic (4) Alcohol dependence with uncomplicated withdrawal Current Visit: No Status: Chronic (5) Marijuana abuse Current Visit: No Status: Chronic - Follow-up Referral Minutes to complete discharge: 20 - AMA Did Patient Leave Against Medical Advice: No
[2019-05-15] MEDS: SERTRALINE HCL 50 MG TABLET (FP) PO SCH (09:10)
[2019-05-15] MEDS: PRENATAL VITAMINS W/ FOLIC ACID TABLET (FP) PO SCH (09:10)
[2019-05-15] MEDS: NICOTINE 21 MG/24 HOURS TOPICAL PATCH TD SCH (09:10)
== END 2019-05-15 09:17 | disposition home or self-care (01) | DRG 772 ==
LOC: YASAS 12:24 → Y3E 12:25
PROVIDERS: ADMIT Neuromusculoskeletal Medicine & OMM; ATTEND Neuromusculoskeletal Medicine & OMM
PROC: HZ42ZZZ Group Counseling for Substance Abuse Treatment, Cognitive-Behavioral (ICD-10-PCS; principal; 2019-04-17)
DX: F10.20 Alcohol dependence, uncomplicated (principal); F14.20 Cocaine dependence, uncomplicated; F12.20 Cannabis dependence, uncomplicated; F16.10 Hallucinogen abuse, uncomplicated; F17.210 Nicotine dependence, cigarettes, uncomplicated; F43.21 Adjustment disorder with depressed mood; D64.9 Anemia, unspecified

== ENCOUNTER 2022-04-10 22:06 | Inpatient (IN) | payer OTHER ==
[2022-04-10 22:40] VITALS: BMI 23.3
[2022-04-10] MEDS ORDERED: MAGNESIUM HYDROX 2400MG/30ML ORAL SUSPENSION 30 ML CUP PO PRN (23:12)
[2022-04-10] MEDS ORDERED: MAGNESIUM CITRATE 300 ML BOTTLE PO PRN (23:12)
[2022-04-10] MEDS ORDERED: DICYCLOMINE HCL 10 MG CAPSULE PO PRN (23:12)
[2022-04-10] MEDS ORDERED: BENZOCAINE/MENTHOL (CHLORASEPTIC ) LOZENGE MM PRN (23:12)
[2022-04-10] MEDS ORDERED: ACETAMINOPHEN 325 MG TABLET (FP) PO PRN ×2 (23:12)
[2022-04-10] MEDS ORDERED: IBUPROFEN 400 MG TABLET (FP) PO PRN (23:12)
[2022-04-10] MEDS ORDERED: LOPERAMIDE HCL 2 MG CAPSULE PO PRN (23:12)
[2022-04-10] MEDS ORDERED: BISMUTH SUBSALICYLATE 524 MG/30 ML PO PRN (23:12)
[2022-04-10] MEDS ORDERED: ONDANSETRON *ODT* 4 MG TABLET SL PRN (23:12)
[2022-04-10] MEDS ORDERED: NICOTINE POLACRILEX 2 MG GUM BUC PRN (23:12)
[2022-04-10] MEDS ORDERED: MAG HYDROX/AL HYDROX/SIMETH 30 ML UNIT-DOSE CUP PO PRN (23:12)
[2022-04-10] MEDS ORDERED: chlordiazePOXIDE HCL 25 MG CAPSULE PO PRN (23:14)
[2022-04-10] MEDS ORDERED: METHOCARBAMOL 500 MG TABLET ONE (23:47)
[2022-04-10] MEDS ORDERED: chlordiazePOXIDE HCL 25 MG CAPSULE ONE (23:47)
[2022-04-10] MEDS: METHOCARBAMOL 500 MG TABLET PO PRN (23:51)
[2022-04-10] MEDS: chlordiazePOXIDE HCL 25 MG CAPSULE PO SCH (23:51)
[2022-04-11] MEDS ORDERED: chlordiazePOXIDE HCL 25 MG CAPSULE ONE (06:08)
[2022-04-11] MEDS: PRENATAL VITAMINS W/ FOLIC ACID TABLET (FP) PO SCH (13:12)
[2022-04-11] MEDS: chlordiazePOXIDE HCL 25 MG CAPSULE PO SCH ×4 (13:12→23:00)
[2022-04-11] MEDS: METHOCARBAMOL 500 MG TABLET PO PRN (18:17)
[2022-04-11] MEDS: hydrOXYzine PAMOATE 25 MG CAPSULE (FP) PO PRN (18:17)
[2022-04-11] MEDS: MELATONIN 5 MG TABLETS PO PRN (23:00)
[2022-04-11] MEDS: THIAMINE HCL 100 MG TABLET (FP) PO SCH (23:00)
[2022-04-12] MEDS: chlordiazePOXIDE HCL 25 MG CAPSULE PO SCH ×4 (05:55→22:47)
[2022-04-12] MEDS: hydrOXYzine PAMOATE 25 MG CAPSULE (FP) PO PRN ×4 (05:56→22:46)
[2022-04-12] MEDS: METHOCARBAMOL 500 MG TABLET PO PRN ×3 (05:56→17:32)
[2022-04-12 09:10] LABS: ALBUMIN 3.4 g/dl (3.4-5.0); BLOOD UREA NITROGEN 7.3 mg/dL (7-18); CALCIUM 8.3 mg/dL (8.5-10.1)
[2022-04-12 09:11] LABS: HEMOGLOBIN 13.8 GM/dL (10.7-15.3); MCH 31.2 pg (25.7-33.7); MCHC 33.6 g/dl (32.0-36.0); MEAN CELL VOLUME 92.8 fl (80-96); MEAN PLT VOLUME 8.8 fl (7.5-11.1); PLATELET COUNT 224 10^3/uL (134-434); RBC 4.42 M/mm3 (3.60-5.2); RDW 13.2 % (11.6-15.6); WHITE BLOOD COUNT 6.4 K/mm3 (4.0-10.0)
[2022-04-12 09:13] LABS: CREATININE 0.6 mg/dL (0.55-1.3)
[2022-04-12 09:15] LABS: BILIRUBIN,TOTAL 0.2 mg/dL (0.2-1); TOT PROT 5.8 g/dl (6.4-8.2)
[2022-04-12] MEDS: PRENATAL VITAMINS W/ FOLIC ACID TABLET (FP) PO SCH (10:38)
[2022-04-12] MEDS: THIAMINE HCL 100 MG TABLET (FP) PO SCH (22:46)
[2022-04-13] MEDS ORDERED: chlordiazePOXIDE HCL 10 MG CAPSULE PO PRN
[2022-04-13] MEDS: chlordiazePOXIDE HCL 10 MG CAPSULE PO SCH ×4 (05:49→22:28)
[2022-04-13] MEDS: hydrOXYzine PAMOATE 25 MG CAPSULE (FP) PO PRN ×4 (05:49→22:29)
[2022-04-13] MEDS: METHOCARBAMOL 500 MG TABLET PO PRN ×2 (05:50→22:29)
[2022-04-13] MEDS: PRENATAL VITAMINS W/ FOLIC ACID TABLET (FP) PO SCH (10:22)
[2022-04-13] MEDS: THIAMINE HCL 100 MG TABLET (FP) PO SCH (22:26)
[2022-04-13] MEDS: MELATONIN 5 MG TABLETS PO PRN (22:26)
[2022-04-13] MEDS: IBUPROFEN 600 MG TABLET (FP) PO PRN (23:59)
[2022-04-14] MEDS: chlordiazePOXIDE HCL 10 MG CAPSULE PO SCH ×2 (05:58→17:38)
[2022-04-14] MEDS: hydrOXYzine PAMOATE 25 MG CAPSULE (FP) PO PRN ×4 (05:59→22:15)
[2022-04-14] MEDS: METHOCARBAMOL 500 MG TABLET PO PRN ×2 (10:43→17:40)
[2022-04-14] MEDS: PRENATAL VITAMINS W/ FOLIC ACID TABLET (FP) PO SCH (10:43)
[2022-04-14] MEDS: IBUPROFEN 600 MG TABLET (FP) PO PRN (17:40)
[2022-04-14] MEDS: MELATONIN 5 MG TABLETS PO PRN (22:15)
[2022-04-14] MEDS: THIAMINE HCL 100 MG TABLET (FP) PO SCH (22:16)
[2022-04-15] MEDS ORDERED: chlordiazePOXIDE HCL 10 MG CAPSULE PO ONE (05:00)
[2022-04-15] MEDS: hydrOXYzine PAMOATE 25 MG CAPSULE (FP) PO PRN (05:51)
[2022-04-15 06:42] VITALS: TEMP 98.1
[2022-04-15 09:28] VITALS: BP 109/55; PULSE 76; RESP 18
[2022-04-15] MEDS: PRENATAL VITAMINS W/ FOLIC ACID TABLET (FP) PO SCH (10:22)
== END 2022-04-15 11:02 | disposition home or self-care (01) | DRG 774 ==
LOC: YASAS 22:06 → Y6N 04-11 12:41
PROVIDERS: ADMIT Allergy & Immunology; ATTEND Surgery
PROC: HZ2ZZZZ Detoxification Services for Substance Abuse Treatment (ICD-10-PCS; principal; 2022-04-11)
DX: F10.230 Alcohol dependence with withdrawal, uncomplicated (principal); F14.20 Cocaine dependence, uncomplicated; F16.20 Hallucinogen dependence, uncomplicated; F12.20 Cannabis dependence, uncomplicated; F17.210 Nicotine dependence, cigarettes, uncomplicated; F19.24 Other psychoactive substance dependence with psychoactive substance-induced mood disorder; F32.A Depression, unspecified; Z86.59 Personal history of other mental and behavioral disorders; Z91.19 Patient's noncompliance with other medical treatment and regimen
CPT/HCPCS: 36415; 80053; 81025; 85027; 86780; C9803-CS; U0003; U0005

== ENCOUNTER 2022-12-29 22:23 | Inpatient (IN) | payer OTHER ==
[2022-12-29 22:47] VITALS: BMI 21.2
[2022-12-29] MEDS ORDERED: MELATONIN 5 MG TABLETS PO PRN (23:13)
[2022-12-29] MEDS ORDERED: POLYETHYLENE GLYCOL (HEALTHYLAX) 3350 17 GM PACKET PO PRN (23:13)
[2022-12-29] MEDS ORDERED: BENZONATATE 200 MG CAPSULE PO PRN (23:13)
[2022-12-29] MEDS ORDERED: ONDANSETRON *ODT* 4 MG TABLET SL PRN (23:13)
[2022-12-29] MEDS ORDERED: MAGNESIUM HYDROX 2400MG/30ML ORAL SUSPENSION 30 ML CUP PO PRN (23:13)
[2022-12-29] MEDS ORDERED: guaiFENesin 600 MG TABLET.ER (FP) PO PRN (23:13)
[2022-12-29] MEDS ORDERED: BENZOCAINE/MENTHOL (CHLORASEPTIC ) LOZENGE MM PRN (23:13)
[2022-12-29] MEDS ORDERED: DICYCLOMINE HCL 10 MG CAPSULE PO PRN (23:13)
[2022-12-29] MEDS ORDERED: IBUPROFEN 400 MG TABLET (FP) PO PRN (23:13)
[2022-12-29] MEDS ORDERED: BISMUTH SUBSALICYLATE 524 MG/30 ML PO PRN (23:13)
[2022-12-29] MEDS ORDERED: IBUPROFEN 600 MG TABLET (FP) PO PRN (23:13)
[2022-12-29] MEDS ORDERED: MAG HYDROX/AL HYDROX/SIMETH 30 ML UNIT-DOSE CUP PO PRN (23:13)
[2022-12-29] MEDS ORDERED: LOPERAMIDE HCL 2 MG CAPSULE PO PRN (23:13)
[2022-12-29] MEDS ORDERED: ACETAMINOPHEN 325 MG TABLET (FP) PO PRN (23:13)
[2022-12-29] MEDS ORDERED: P-EPHED 60MG/TRIPROLIDI 2.5MG TABLET PO PRN (23:13)
[2022-12-29] MEDS ORDERED: chlordiazePOXIDE HCL 25 MG CAPSULE PO PRN (23:15)
[2022-12-30] MEDS: chlordiazePOXIDE HCL 25 MG CAPSULE PO SCH ×5 (00:06→23:12)
[2022-12-30] MEDS ORDERED: chlordiazePOXIDE HCL 25 MG CAPSULE ONE (00:16)
[2022-12-30] MEDS: PRENATAL VITAMINS W/ FOLIC ACID TABLET (FP) PO SCH (10:29)
[2022-12-30 12:06] LABS: HEMATOCRIT 37.8 % (32.4-45.2); MCH 32.5 pg (25.7-33.7); MCHC 34.5 g/dl (32.0-36.0); MEAN CELL VOLUME 94.1 fl (80-96); MEAN PLT VOLUME 8.4 fl (7.5-11.1); PLATELET COUNT 249 10^3/uL (134-434); RBC 4.01 M/mm3 (3.60-5.2); WHITE BLOOD COUNT 4.9 K/mm3 (4.0-10.0)
[2022-12-30 12:57] LABS: CALCIUM 8.1 mg/dL (8.5-10.1)
[2022-12-30 12:58] LABS: ALBUMIN 3.3 g/dl (3.4-5.0)
[2022-12-30 13:00] LABS: CREATININE 0.8 mg/dL (0.55-1.3)
[2022-12-30 13:02] LABS: BILIRUBIN,TOTAL 0.7 mg/dL (0.2-1)
[2022-12-30] MEDS: THIAMINE HCL 100 MG TABLET (FP) PO SCH (22:12)
[2022-12-30] MEDS: SUVOREXANT 10 MG TABLET PO PRN (23:15)
[2022-12-31] MEDS: chlordiazePOXIDE HCL 25 MG CAPSULE PO SCH ×4 (05:21→22:45)
[2022-12-31] MEDS: PRENATAL VITAMINS W/ FOLIC ACID TABLET (FP) PO SCH (10:11)
[2022-12-31] MEDS: THIAMINE HCL 100 MG TABLET (FP) PO SCH (22:43)
[2022-12-31] MEDS: SUVOREXANT 10 MG TABLET PO PRN (22:45)
[2023-01-01] MEDS ORDERED: chlordiazePOXIDE HCL 10 MG CAPSULE PO PRN
[2023-01-01] MEDS: chlordiazePOXIDE HCL 10 MG CAPSULE PO SCH ×4 (05:03→22:21)
[2023-01-01] MEDS: PRENATAL VITAMINS W/ FOLIC ACID TABLET (FP) PO SCH (10:25)
[2023-01-01] MEDS: hydrOXYzine PAMOATE 50 MG CAPSULE (FP) PO PRN ×2 (11:40→17:45)
[2023-01-01] MEDS ORDERED: TRIMETHOBENZAMIDE HCL 200MG/2ML INJ IM ONE (14:00)
[2023-01-01] MEDS: SUVOREXANT 10 MG TABLET PO PRN (22:20)
[2023-01-01] MEDS: THIAMINE HCL 100 MG TABLET (FP) PO SCH (22:21)
[2023-01-02] MEDS: chlordiazePOXIDE HCL 10 MG CAPSULE PO SCH ×2 (05:41→17:56)
[2023-01-02] MEDS: hydrOXYzine PAMOATE 50 MG CAPSULE (FP) PO PRN ×5 (05:42→22:57)
[2023-01-02] MEDS: PRENATAL VITAMINS W/ FOLIC ACID TABLET (FP) PO SCH (10:17)
[2023-01-02] MEDS: THIAMINE HCL 100 MG TABLET (FP) PO SCH (22:57)
[2023-01-03] MEDS ORDERED: chlordiazePOXIDE HCL 10 MG CAPSULE PO ONE (05:00)
[2023-01-03] MEDS: hydrOXYzine PAMOATE 50 MG CAPSULE (FP) PO PRN (06:17)
[2023-01-03 07:24] VITALS: BP 106/68; PULSE 51; RESP 18; TEMP 97.6
[2023-01-03] MEDS: PRENATAL VITAMINS W/ FOLIC ACID TABLET (FP) PO SCH (10:28)
== END 2023-01-03 10:11 | disposition home or self-care (01) | DRG 774 ==
LOC: YASAS 22:23 → Y6N 12-30 01:12
PROVIDERS: ADMIT Surgery; ATTEND Surgery
PROC: HZ2ZZZZ Detoxification Services for Substance Abuse Treatment (ICD-10-PCS; principal; 2022-12-30)
DX: F10.230 Alcohol dependence with withdrawal, uncomplicated (principal); F14.20 Cocaine dependence, uncomplicated; F12.20 Cannabis dependence, uncomplicated; F17.210 Nicotine dependence, cigarettes, uncomplicated; F19.282 Other psychoactive substance dependence with psychoactive substance-induced sleep disorder; F19.280 Other psychoactive substance dependence with psychoactive substance-induced anxiety disorder; F19.24 Other psychoactive substance dependence with psychoactive substance-induced mood disorder; D64.9 Anemia, unspecified; Z62.810 Personal history of physical and sexual abuse in childhood; Z91.410 Personal history of adult physical and sexual abuse
CPT/HCPCS: 36415; 80053; 81025; 85027; 86780; C9803-CS; U0003; U0005